=== PATIENT | male | born 1965 | race Two or more races ===

== ENCOUNTER 2021-02-16 09:09 | Outpatient (CLI) | payer OTHER | END 2021-02-16 09:29 | disposition home or self-care (01) | LOC: SONOGRAMA 09:09 → MAMO-SONO 09:30 | DX: M17.11 Unilateral primary osteoarthritis, right knee (principal); M17.12 Unilateral primary osteoarthritis, left knee; N40.0 Benign prostatic hyperplasia without lower urinary tract symptoms; M54.59 Other low back pain ==